=== PATIENT | male | born 1995 | race African-American/Black ===

== ENCOUNTER 2017-09-20 16:52 | Emergency (ER) | payer SELFPAY ==
[2017-09-20] MEDS ORDERED: Ibuprofen 800 MG TAB ONE (17:29)
== END 2017-09-20 17:29 | disposition home or self-care (01) ==
LOC: ERS 16:52
DX: J01.90 Acute sinusitis, unspecified (principal); B96.89 Other specified bacterial agents as the cause of diseases classified elsewhere; F17.210 Nicotine dependence, cigarettes, uncomplicated
CPT/HCPCS: 99283

== ENCOUNTER 2017-12-01 19:25 | Emergency (ER) | payer SELFPAY ==
[2017-12-01] MEDS ORDERED: Ketorolac Tromethamine 30 MG/ML VIAL ONE (19:59)
== END 2017-12-01 20:59 | disposition home or self-care (01) ==
LOC: ERS 19:25
DX: J11.1 Influenza due to unidentified influenza virus with other respiratory manifestations (principal); F17.210 Nicotine dependence, cigarettes, uncomplicated
CPT/HCPCS: 96372; J1885

== ENCOUNTER 2018-10-13 15:59 | Emergency (ER) | payer SELFPAY | END 2018-10-13 17:26 | disposition home or self-care (01) | LOC: ERS 15:59 | DX: J06.9 Acute upper respiratory infection, unspecified (principal); F17.210 Nicotine dependence, cigarettes, uncomplicated | CPT/HCPCS: 87804; 99283 ==